=== PATIENT | female | born 1990 | race Caucasian/White ===

== ENCOUNTER 2024-09-14 06:08 | Day surgery (SDC) | payer OTHER, SELFPAY ==
--- NOTE | 2024-09-13 20:01 | W.ANESPRE ---
General Info Date of Service Date Performed: 09/14/24 Height: 5 ft 4 in Weight: 70.307 kg Body Mass Index (BMI): 26.6 Surgical Procedure: Operation Date: 09/14/24 07:40 Proposed Procedure Side Surgeon p Hernia Inguinal Laparoscopic w/Mesh Bilateral Dinh Josehp MD Meds Allergies and Home Medications Allergies Allergy/AdvReac Type Severity Reaction Status Date / Time Penicillins Allergy Intermediate as Verified 09/14/24 06:46 teenager, hives Home Medication ?Medication ?Instructions ?Recorded acetaminophen 500 mg capsule 1,000 mg PO Q6H PRN 09/13/24 Current Visit Medications: Current Medications Generic Name Dose Route Start Last Admin Trade Name Freq PRN Reason Stop Dose Admin Heparin Sodium (Porcine) 5,000 units 09/14/24 06:00 Heparin 5,000 Units/Ml Vial SC 09/14/24 23:59 PREOP COLLEEN Ringer's Solution 1,000 mls @ 80 mls/hr 09/14/24 06:00 IV 09/14/24 23:59 INFUSION COLLEEN IV Miscellaneous Supplies 1 each 09/14/24 06:00 Iv Access IV 09/14/24 23:59 DIRECTED COLLEEN Sodium Chloride 0 ml 09/14/24 06:00 Normal Saline Flush 10 Ml Syr IV 09/14/24 23:59 PRN PRN Sodium Chloride 0 ml 09/14/24 06:00 Normal Saline 10 Ml Vial IJ 09/14/24 23:59 DIRECTED PRN Sterile Water 0 ml 09/14/24 06:00 Water,Injection,Sterile 10 Ml Vial IJ 09/14/24 23:59 DIRECTED PRN PFSH Active Problems Active Problems: Problem Status Onset Code RUQ pain Acute R10.11 Medical History Medical History Bilateral inguinal hernia Surgical History Surgical History (Updated 09/14/24 @ 06:48 by Comfort Lang) History of tooth extraction History of tonsillectomy Tobacco Smoking/Tobacco Use Status: Never Passive smoking exposure: No Alcohol Alcohol Intake: never Substance Use Substance use: Never Substance use type: does not use Vital Signs and Lab Results Vital Signs Most Recent Vital Signs in EMR: Temp Pulse Resp BP Pulse Ox 37.0 C 70 16 122/81 98 09/14/24 06:43 09/14/24 06:43 09/14/24 06:43 09/14/24 06:43 09/14/24 06:43 Lab Results Blood Type / Crossmatch: No Data to Display Complete Blood Count: No Data to Display Complete Metabolic Panel: No Data to Display Liver Function Panel: No Data to Display Coagulation Panel: No Data to Display Cardiac Panel: No Data to Display Arterial Blood Gas: No Data to Display Venous Blood Gas: No Data to Display Pancreas Panel: No Data to Display Thyroid Panel: No Data to Display Infectious Disease: No Data to Display Blood Cultures: No Data to Display Toxicology Panel: No Data to Display Panel: No Data to Display Anesthesia Assessment and Plan Anesthesia History Personal History: No History of General Anesthesia Family History: Other Exercise Tolerance Exercise Tolerance: Metabolic Equivalents>4 Cardiac & Pulmonary Exam Cardiac Exam: Normal S1/S2 Heart Sounds Pulmonary Exam: Clear Bilateral Breath Sounds Implantable Cardiac Device Does patient have a Pacemaker or an ICD?: No Airway Exam Known Difficult Airway: No Mallampati Class: 2 Mouth Opening: Normal (> 3cm) Thyromental Distance: Greater than 3 cm Neck Range of Motion: Full ROM Neck Circumference: Normal Teeth Condition: Normal Dentition ASA Classification ASA Score: ASA 2 Emergency Case?: No NPO Status NPO Status: NPO Clears >2 hours, Solids >8 hours Status Status: Negative HCG Anesthesia Plan Resuscitation Status: Full Code Anesthesia Technique: General Anesthesia Airway Planned: Endotracheal Tube Pain Management: Surgeon and patient request nerve block Monitors Used: Standard Monitors Preoperative Comments:: 34 yo female for for hernia repair. Sig PMHx: RAD (will get wheezy with certain environmental things and occ with exertion), heart burn (takes no med, happens once a week), never smoker. Previous Anes: none here. Mother has had issues likely related to Colleen use (myalgias), and slow wake ups.
[2024-09-14] VITALS (17 sets, daily range): BP systolic 113–122; BP diastolic 62–93; PULSE 65–80; RESP 14–23; TEMP 36.2–37.2; O2SAT 97–100; BMI 26.6
[2024-09-14] MEDS: Heparin 5,000 UNITS/ML VIAL 5000 UNITS SC (07:10)
[2024-09-14] MEDS: Lactated Ringers 1,000 ML 80 ML IV (07:10)
--- NOTE | 2024-09-14 08:14 | W.ANESNERVE ---
Nerve Block Single Injection Procedure Date and Time Date Performed: 09/14/24 Procedure Start: 08:02 Location Where Procedure Performed Procedure Location: Operating Room Procedure Stop: 08:13 Reason Performed: Postoperative Analgesia Requesting Provider: Dinh Joseph Timeout Performed Timeout Performed: Yes Monitoring Used ECG, Blood Pressure, SpO2 and ETCO2 Sterility Sterility: Hand Hygiene, Surgical Cap, Surgical Mask and Chlorhexidine Sedation Given During Procedure Sedation Given (Indicate Dose Given): No Sedation given Patient Mental Status Patient Mental Status: Performed under general anesthesia Nerve Block 1st Nerve Block: Laterality: Bilateral Block Type: TAP Bilateral Ultrasound Image Saved?: Yes Needle / Catheter Used: 100mm SonoPlex II Local Anesthetic Bolus (Indicate Dose Given): Half of Total block solution given into each side, Bupivacaine 0.25% Dose:: 40 mL and Exparel Dose:: 20 mL Additives (Indicate Dose Given): None Ultrasound: Sterile probe cover and gel used Nerve Stimulator: Supplement to Ultrasound use Paresthesia: None Procedure Tolerated: No Complications Procedure Outcome: Successful Performed By: Travis Amaro
[2024-09-14] MEDS: Bupivacaine 0.25% Pres-Free 30 ML VIAL (10:33)
--- NOTE | 2024-09-14 11:30 | W.ANESPOSTOP ---
Postoperative Evaluation Date, Time and Location Date Performed: 09/14/24 Time Performed: 11:30 Patient Location: PACU Vital Signs Most Recent Imported Vital Signs: Most Recent Vital Signs Temp Pulse Resp BP Pulse Ox 36.2 C L 70 16 122/81 98 09/14/24 11:11 09/14/24 06:43 09/14/24 06:43 09/14/24 06:43 09/14/24 06:43 Pain Score Most Recent Pain Score: Most Recent Pain Score Pain Level 0 09/14/24 06:43 Assessment Mental Status: Arousable with meaningful communication Airway and Respiratory Function: Patent airway with normal (patient baseline) respiratory exam Cardiovascular Function: Hemodynamically Stable Hydration Status: Adequately Hydrated Nausea & Vomiting: No Nausea or Vomiting Pain: Pain is tolerable per patient Peripheral Nerve Block: Regional nerve block not resolved at time of post operative discharge
--- NOTE | 2024-09-14 11:48 | W.PM.OP ---
Operative Note Operative Note Refer to Anesthesia Record Procedure Description: (Bilateral round-ligament preserving [place]) PROCEDURES PERFORMED: 1. Laparoscopic repair of Primary reducible RIGHT inguinal hernia 2. Laparoscopic repair of Primary reducible LEFT inguinal hernia 3. Laparoscopic repair of Primary incarcerated RIGHT femoral hernia 4. Laparoscopic repair of Primary incarcerated LEFT femoral hernia Preoperative Diagnosis: Reducible bilateral inguinal hernias Postoperative Diagnosis: Reducible bilateral indirect inguinal hernias, reducible left direct inguinal hernia, incarcerated bilateral femoral hernias Surgeon: Juan Carlos Joseph Assist: Sheila Anesthesia: General Anesthesiologist: Travis Indication: Bilateral, chronic inguinal hernias causing discomfort. Findings: #Bilateral indirect defects without incarcerated contents. Small left direct defect. Bilateral femoral defects with incarcerated preperitoneal fat herniating through both defects. This fat was able to be reduced laparoscopically on both sides to a preperitoneal location medial to the mesh placement. #The bilateral round ligaments were preserved. #The bilateral myopectineal orifices were repaired in typical, posterior fashion with mesh. ([place]) Complications: None Estimated Blood Loss: (5cc) Scant Specimens removed: None Grafts or implants: 3D carmela large, MID mesh, bilateral Procedure in detail: Written consent was obtained from the patient who was in agreement with the risks, the benefits and the indications for the procedure. She was taken to the operating suite and laid supine on the operating table with both arms tucked. IV antibiotics were not indicated and DVT prophylaxis had been given. Venodynes were in place. General anesthesia was administered which was tolerated very well. Anesthesia performed an ultrasound?guided TAP block. See their procedure note for details. We then prepped and draped the abdomen in sterile fashion. A timeout was performed. When we were all in agreement we began the procedure. Within the umbilicus a small stab incision was made and a 5 mm Optiview trocar was used to enter into the abdomen under direct visualization. The liver was inspected and did not appear cirrhotic. 2 other 5 mm port were placed under direct visualization and the umbilical port was upsized to a 12 mm to facilitate passing the mesh and sutures. The patient was placed in Trendelenburg and we had good visualization of the intra-abdominal contents, pelvis and the bilateral pelvic sidewalls. No intestines were incarcerated in the visible defects. The left has a visible indirect as well as a direct defect. Peritoneal laxity was noted in the femoral spaces on both sides but no obvious hernias. On the right, there was a visible indirect defect but no obvious direct defect. In standard/usual fashion I created peritoneal flaps. I started on the right. A combination of blunt and sharp dissection was performed using the LigaSure. I reduced the hernia sac out of the indirect space and in doing so had to sharply divided off of the round ligament. I preserved the round ligament. I developed the preperitoneal space all the way medial to beyond the pubic tubercle midline. Dennis's ligament was clearly exposed as well as all 3 potential defects of the myopectineal orifice. The femoral space was carefully examined and it was obvious that preperitoneal next to the bladder was being sucked in to this defect. It was a significant amount of fat and I was able to reduce it out laparoscopically. I then turned my attention to the left side and exposed it in similar fashion. The round ligament here was also preserved. The same findings in the left?sided femoral space were encountered. Hemostasis was excellent. Two 3D carmela MID mesh were introduced in usual fashion and they laid perfectly within the spaces I had created. The indirect, direct as well as the femoral spaces were all completely covered with significant and adequate overlay. The fat that had been herniating down through the femoral spaces in the medial to the mesh on both sides. I sutured each mesh to Dennis's ligament with Vicryl and in the upper outer quadrant to the fascia with Vicryl so the mesh would not rotate or migrate. Next I created a keyhole for the round ligament and reapproximated the mesh flaps underneath the round ligament with permanent suture. This was done on both sides. Next I closed both peritoneal flaps with the V-loc. All of the needles were then removed from the peritoneal cavity. Hemostasis was excellent. I closed the umbilical 12mm defect with 0 Vicryl. The pneumoperitoneum was evacuated and then the 5 mm ports were removed. We closed the skin with Monocryl and put Dermabond on top. The sponge, instrument and sharps count was correct x3 at the end of the procedure. The patient tolerated the procedure well and was taken to the PACU in hemodynamically stable condition. Date of Procedure: 09/14/24
--- NOTE | 2024-09-14 11:48 | W.PM.DSUDISC ---
Date of service: 09/14/24 Discharge Plan Disposition Patient Disposition: Home Condition: Good Discharge Details Attending Provider: Dinh Joseph Primary Care Provider: Jcarlos Vargas Home Meds and New Rx's Prescriptions: No Action acetaminophen 500 mg capsule 1,000 mg PO Q6H PRN Discharge Instructions Additional Instructions: INSTRUCTIONS: Incisions: Keep clean and dry but they do not need to be covered. It is okay to shower but no tub bathing for 1 week. You can peel the glue off after 1 week. Activity: As tolerated. Light duty without any heavy lifting/pulling or pushing for 6-8 weeks. Diet: Regular diet as tolerated. Medications: Resume all of your usual/regular home medications. Follow-up: If you are having any issues or concerns call the surgery office immediately. If you want to have a routine follow-up that is perfectly fine and you can call and schedule an. If everything is otherwise going well, you do not need to follow-up. Pain control: Take Tylenol, 1000 mg, every 6 hours on a schedule for the next 3 days. You can use ibuprofen in addition to Tylenol if needed. Ice can be used as needed. Overall: Symptoms should not be worsening. If you have any difficulty breathing or you have return of symptoms of brought you to the hospital or your pain is otherwise worsening each day and you should call the doctor's office or come into the hospital to be checked out. Stand Alone Forms: Anesthesia Discharge Inst., Anes.Sugammadex Interaction, Anes.Nerve Block Instructions, [facility] ([facility]) Discharge Orders Discharge Orders: Discharge Order (Routine); Ordered 09/14/24 Ordered By: Dinh Joseph
== END 2024-09-14 14:33 | disposition home or self-care (01) ==
PROVIDERS: PCP Obstetrics & Gynecology; Visit Provider Student in an Organized Health Care Education/Training Program
PROC: (CPT 49650; principal; 2024-09-14 07:30)
DX: K40.20 Bilateral inguinal hernia, without obstruction or gangrene, not specified as recurrent (principal); K21.9 Gastro-esophageal reflux disease without esophagitis; Z87.09 Personal history of other diseases of the respiratory system; K41.00 Bilateral femoral hernia, with obstruction, without gangrene, not specified as recurrent
CPT/HCPCS: 49650; 49553; 64488; 81025; C1781; J0131; J0665; J0666; J1100; J1644; J1805; J1885; J2405; J2704; J3475